=== PATIENT | male | born 1985 | race Hispanic/Latino ===

== ENCOUNTER 2021-02-23 22:54 | Emergency (ER) | payer SELFPAY ==
[2021-02-23 23:01] VITALS: BP 127/75
== END 2021-02-23 23:59 | disposition left against medical advice (07) ==
LOC: EDH 22:54
DX: M79.10 Myalgia, unspecified site (principal); Z53.21 Procedure and treatment not carried out due to patient leaving prior to being seen by health care provider

== ENCOUNTER 2021-02-24 10:18 | Emergency (ER) | payer SELFPAY ==
[~2021-02-24] VITALS: Ht 162.6 cm; Wt 77.1 kg
== END 2021-02-24 13:26 | disposition home or self-care (01) ==
LOC: EDH 10:18
DX: U07.1 COVID-19 (principal); J06.9 Acute upper respiratory infection, unspecified
CPT/HCPCS: 87635; 87804 ×2; 87880; 99283; C9803